=== PATIENT | female | born 1995 | race Hispanic/Latino ===

== ENCOUNTER 2019-02-09 21:37 | Emergency (ER) | payer SELFPAY ==
--- NOTE | 2019-02-09 22:04 | ED.PDOC ---
History of Present Illness - General Chief Complaint: CORRECTION OFFICER HEAD Problem Stated Complaint: Vaginal Bleeding Time Seen by Provider: 02/09/19 21:59 Source: patient Exam Limitations: no limitations - History of Present Illness Initial Comments: Patient is a G1 at 7 weeks by LMP who presents with vaginal bleeding for about 2 hours. She has not noticed any tissue in the bleeding. She feels some discomfort in her lower back and in the vaginal area. Denies abdominal or pelvic pain. No history of IUD use. No other complaints. Timing/Duration: 1-3 hours Severity: mild Improving Factors: nothing Worsening Factors: nothing Associated Symptoms: denies symptoms Allergies/Adverse Reactions: Allergies NO KNOWN ALLERGY Allergy (Verified 02/09/19 21:56) Review of Systems - Review of Systems Constitutional: States: no symptoms reported EENTM: States: no symptoms reported Respiratory: States: no symptoms reported Cardiology: States: no symptoms reported Gastrointestinal/Abdominal: States: no symptoms reported Genitourinary: States: see HPI Musculoskeletal: States: no symptoms reported Skin: States: no symptoms reported Neurological: States: no symptoms reported Endocrine: States: no symptoms reported Hematologic/Lymphatic: States: no symptoms reported Family Medical History - Family History Mother Family History: Unknown Physical Exam - Physical Exam General Appearance: Alert Respiratory: lungs clear, normal breath sounds Cardiovascular/Chest: normal peripheral pulses, regular rate, rhythm, no edema Gastrointestinal/Abdominal: normal bowel sounds, non tender, soft Back Exam: normal inspection, no CVA tenderness Skin Exam: normal color Progress - Progress Progress: 02/09/19 23:02 Laboratory Tests 02/09/19 02/09/19 02/09/19 21:59 21:59 21:59 WBC 10.5 RBC 4.30 Hgb 12.9 Hct 37.6 MCV 87.4 MCH 29.9 MCHC 34.2 RDW 14.1 Plt Count 321 MPV 6.6 L Absolute Neuts (auto) 7.90 H Absolute Lymphs (auto) 1.80 Absolute Monos (auto) 0.70 Absolute Eos (auto) 0.00 Absolute Basos (auto) 0.10 Neutrophils % 75.7 Lymphocytes % 16.8 L Monocytes % 6.8 Eosinophils % 0.2 L Basophils % 0.5 PT 10.0 INR 1.00 PTT (SP) 26.7 Sodium 137 Potassium 4.0 Chloride 106 Carbon Dioxide 21 Anion Gap 14.0 BUN 11 Creatinine 0.53 L BUN/Creatinine Ratio 20.8 H Random Glucose 107 H Serum Osmolality 273.7 L Calcium 9.0 Total Bilirubin 0.4 AST 18 ALT 20 Alkaline Phosphatase 89 Serum Total Protein 7.4 Albumin 3.9 Globulin 3.5 Albumin/Globulin Ratio 1.1 Beta HCG, Quant Urine Color Urine Appearance Urine pH Ur Specific [place] Urine Protein Urine Glucose (UA) Urine Ketones Urine Blood Urine Nitrite Urine Bilirubin Urine Urobilinogen Ur Leukocyte Esterase Urine RBC Urine WBC Ur Epithelial Cells Amorphous Sediment Urine Bacteria Urine Mucus Urine HCG, Qual 02/09/19 02/09/19 02/09/19 22:00 22:00 22:10 WBC RBC Hgb Hct MCV MCH MCHC RDW Plt Count MPV Absolute Neuts (auto) Absolute Lymphs (auto) Absolute Monos (auto) Absolute Eos (auto) Absolute Basos (auto) Neutrophils % Lymphocytes % Monocytes % Eosinophils % Basophils % PT INR PTT (SP) Sodium Potassium Chloride Carbon Dioxide Anion Gap BUN Creatinine BUN/Creatinine Ratio Random Glucose Serum Osmolality Calcium Total Bilirubin AST ALT Alkaline Phosphatase Serum Total Protein Albumin Globulin Albumin/Globulin Ratio Beta HCG, Quant 5258.0 H Urine Color Dk yellow H Urine Appearance Sl cloudy Urine pH 6.0 Ur Specific [place] >= 1.030 Urine Protein 100 H Urine Glucose (UA) Negative Urine Ketones Negative Urine Blood Large H Urine Nitrite Negative Urine Bilirubin Negative Urine Urobilinogen 0.2 Ur Leukocyte Esterase Negative Urine RBC 5-10 H Urine WBC 5-10 H Ur Epithelial Cells 10-20 Amorphous Sediment 1+ Urine Bacteria 2+ H Urine Mucus Moderate Urine HCG, Qual Positive Quantitative serum HCG consistent with 1-2 month . Patient instructed to see a primary care physician in two days for a recheck of this value. Care instructions given. E.R. warnings given. Questions were elicited and answered. Patient voiced understanding and agreement with the plan. Departure - Departure Clinical Impression: Threatened in first trimester Disposition: Discharge to Home or Self Care Condition: Good Departure Forms: ED Discharge - Pt. Copy, Patient Portal Self Enrollment Instructions: DI for Threatened Diet: resume usual diet Activity: other - pelvic rest, no lifting above 15 pounds Additional Instructions: Tylenol only for pain control. See a family medicine physician or geophysical data technician in two days to retest the serum quantitative HCG. Return to the E.R. for abdominal pain or temperature above 100.3
[2019-02-09 22:05] VITALS: TEMP 99.3
[2019-02-09 23:23] VITALS: BP 141/79; O2SAT 99
== END 2019-02-09 23:30 | disposition home or self-care (01) ==
LOC: ER 21:37
DX: O20.0 Threatened abortion (principal); Z3A.01 Less than 8 weeks gestation of pregnancy